=== PATIENT | female | born 1990 | race Two or more races ===

== ENCOUNTER 2018-08-03 14:38 | Emergency (ER) | payer OTHER ==
[~2018-08-03] VITALS: Ht 149.9 cm; Wt 54.4 kg
[2018-08-03 14:45] VITALS: BP 116/86
[2018-08-03] MEDS ORDERED: IBUPROFEN 400 MG TABLET. PO ONE (15:15)
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
[2018-08-03] MEDS ORDERED: HYDR-3164 PO (16:03)
== END 2018-08-03 16:25 | disposition home or self-care (01) ==
LOC: ER 14:38
DX: S52.122A Displaced fracture of head of left radius, initial encounter for closed fracture (principal); W01.0XXA Fall on same level from slipping, tripping and stumbling without subsequent striking against object, initial encounter; Y93.E5 Activity, floor mopping and cleaning; Y92.89 Other specified places as the place of occurrence of the external cause; Y99.8 Other external cause status
CPT/HCPCS: 29105; 73080; 99284-25

== ENCOUNTER 2018-12-15 17:12 | Emergency (ER) | payer OTHER ==
[~2018-12-15] VITALS: Ht 149.9 cm; Wt 54.4 kg
[~2018-12-15 17:12] MED LIST: HYDR-3164 PO
[2018-12-15] MEDS ORDERED: IV NORMAL SALINE 1000ML BAG 1,000 ML IV ONE ×2 (17:45→20:00)
[2018-12-15] MEDS ORDERED: ACETAMINOPHEN 500 MG TABLET PO ONE (19:15)
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
[2018-12-15 20:47] VITALS: BP 95/66
== END 2018-12-15 21:10 | disposition home or self-care (01) ==
LOC: ER 17:12
DX: S09.90XA Unspecified injury of head, initial encounter (principal); R55 Syncope and collapse; F32.9 Major depressive disorder, single episode, unspecified; F41.9 Anxiety disorder, unspecified; R00.0 Tachycardia, unspecified; Y04.0XXA Assault by unarmed brawl or fight, initial encounter; Y93.89 Activity, other specified; Y92.89 Other specified places as the place of occurrence of the external cause; Y99.8 Other external cause status
CPT/HCPCS: 70450; 70486; 96361; 96374; 99284; J2060; J7030